=== PATIENT | male | born 1955 | race Two or more races ===

== ENCOUNTER 2018-04-17 17:17 | Emergency (ER) | payer OTHER ==
[2018-04-17] MEDS ORDERED: Lidocaine 2% VISCOUS* 15 ML UDC PO ONE (19:27)
--- NOTE | 2018-04-17 19:29 | ED ---
HPI Febrile Illness - HPI Summary HPI Summary: Complains of subjective fever, body aches, bilateral conjunctival injection and ocular burning, sore throat, dry cough, diffuse abdominal pain, leg pain starting last night. Family is here from [place] for wedding, almost all other family members have been diagnosed positive for flu a. Denies trauma, headache , ear pain, neck pain, N/V/D, CP, SOB, change in urine or BM. Medical history is DM, HTN. Denies contact lenses. Horse glasses. - History of Current Complaint Chief Complaint: EDFluSymptoms Time Seen by Provider: 04/17/18 18:03 Hx Obtained From: Patient Onset/Duration: Started Hours Ago Timing: Constant Initial Severity: Mild Current Severity: Mild Pain Intensity: 0 Pain Scale Used: 0-10 Numeric Aggravating Factors: Nothing Alleviating Factors: Nothing Associated Signs and Symptoms: Myalgia, Sore Throat - Allergy/Home Medications Allergies/Adverse Reactions: Allergies Allergy/AdvReac Type Severity Reaction Status Date / Time No Known Allergies Allergy Verified 04/17/18 19:09 PMH/Surg Hx/FS Hx/Imm Hx Previously Healthy: Yes Endocrine/Hematology History: Reports: Hx Diabetes Denies: Hx Anticoagulant Therapy History: Denies: Hx Dialysis Neurological History: Denies: Hx CVA Infectious Disease History: No Infectious Disease History: Denies: Traveled Outside the [place] in Last 30 Days - Family History Known Family History: Positive: Hypertension - Social History Alcohol Use: None Substance Use Type: Reports: None Smoking Status (MU): Never Smoked Tobacco Review of Systems Positive: Fever Positive: Drainage Positive: Sore Throat Cardiovascular: Negative Respiratory: Negative Positive: Abdominal Pain Genitourinary: Negative Positive: Myalgia Skin: Negative Neurological: Negative Psychological: Normal All Other Systems Reviewed And Are Negative: Yes Physical Exam Triage Information Reviewed: Yes Vital Signs On Initial Exam: Initial Vitals Temp Pulse Resp BP Pulse Ox 98.9 F 83 19 142/83 97 04/17/18 17:43 04/17/18 17:43 04/17/18 17:43 04/17/18 17:43 04/17/18 17:43 Vital Signs Reviewed: Yes Appearance: Positive: Well-Appearing Skin: Positive: Warm Head/Face: Positive: Normal Head/Face Inspection Eyes: Positive: Conjunctiva Inflammed, Discharge ENT: Positive: Pharyngeal erythema, TMs normal, Uvula midline. Negative: Tonsillar swelling, Tonsillar exudate, Trismus, Muffled voice, Hoarse voice Neck: Positive: Supple Respiratory/Lung Sounds: Positive: Clear to Auscultation Cardiovascular: Positive: Normal Abdomen Description: Positive: Nontender Musculoskeletal: Positive: Normal Neurological: Positive: Normal Psychiatric: Positive: Normal AVPU Assessment: Alert - [place] Coma Scale Best Eye Response: 4 - Spontaneous Best Motor Response: 6 - Obeys Commands Best Verbal Response: 5 - Oriented Coma Scale Total: 15 Diagnostics - Vital Signs Vital Signs Temp Pulse Resp BP Pulse Ox 04/17/18 17:43 98.9 F 83 19 142/83 97 - Laboratory Lab Results: Lab Results 04/17/18 04/17/18 Range/Units 18:17 18:52 Influenza A (Rapid) Positive A (Negative) Influenza B (Rapid) Negative (Negative) Group A Strep Rapid Negative (Negative) Lab Statement: Any lab studies that have been ordered have been reviewed, and results considered in the medical decision making process. Course/Dx - Course Course Of Treatment: Complains of subjective fever, body aches, bilateral conjunctival injection and ocular burning with bilateral thick discharge, sore throat, dry cough, diffuse abdominal pain, leg pain starting last night. Family is here from [place] for wedding, almost all other family members have been diagnosed positive for flu a. Denies headache, ear pain, neck pain, N/V/D , CP, SOB, change in urine or BM. Medical history is DM, HTN. Vital signs within normal limits. Strep negative. Positive for flu a. Rx for Tamiflu. Rx for lidocaine viscus for sore throat. Rx for gentamicin eyedrops for conjunctival injection with discharge. - Diagnoses Provider Diagnoses: Flu Discharge - Sign-Out/Discharge Documenting (check all that apply): Discharge/Admit/Transfer - Discharge Plan Condition: Stable Disposition: HOME Prescriptions: Lidocaine 2% VISCOUS* [Xylocaine 2% Viscous*] 15 ml SWISH SPIT Q6H PRN #1 btl PRN Reason: Pain Oseltamivir CAP* [Tamiflu CAP*] 75 mg PO BID 5 Days #10 cap Patient Education Materials: Influenza (ED) Referrals: No Primary Care Phys,NOPCP [Primary Care Provider] - Additional Instructions: Take Tamiflu as directed. Follow-up with primary care. Return to the ED for any new or worsening symptoms - Billing Disposition and Condition Condition: STABLE Disposition: Home
[2018-04-17] MEDS ORDERED: Gentamicin 0.3% OPHTH.SOLN* 5 ML BTL BOTH EYES SCH (19:30)
[2018-04-17 19:55] VITALS: BP 129/82
== END 2018-04-17 19:54 | disposition home or self-care (01) ==
LOC: ED 17:17
DX: J11.1 Influenza due to unidentified influenza virus with other respiratory manifestations (principal); J02.9 Acute pharyngitis, unspecified; R50.9 Fever, unspecified; R10.9 Unspecified abdominal pain
CPT/HCPCS: 87651; 99282; A9270-GY